=== PATIENT | female | born 1955 | race Caucasian/White ===

== ENCOUNTER → 2018-12-10 | Outpatient (CLI) | payer OTHER ==
--- NOTE | 2018-12-10 08:44 | PCVCIMAG ---
APPROVED REPORT Indications Bruit History of Smoking Right arm numbness Doppler Spectral Velocity Analysis PSV / EDVPSV / EDV ECA (R) 100 / 23 cm/sECA (L) 81 / 18 cm/s dICA (R) 90 / 32 cm/sdICA (L) 76 / 35 cm/s Ginny (R) 81 / 34 cm/smICA (L) 91 / 40 cm/s pICA (R) 57 / 19 cm/spICA (L) 49 / 17 cm/s Bulb (R) 55 / 18 cm/sBulb (L) 52 / 18 cm/s dCCA (R) 66 / 16 cm/sdCCA (L) 60 / 19 cm/s mCCA (R) 76 / 25 cm/smCCA (L) 81 / 23 cm/s Vert (R) 56 / 19 cm/sVert (L) 55 / 17 cm/s ICA/CCA 1.19ICA/CCA 1.13 Basic Measurements Blood Pressure: Pulses: Right Left RightLeft Brachial(Sitting) 144/22buNp116/90mmHgTemporal Real Time B-Mode Imaging Vert. (R)AntegradeVert. (L)Antegrade Findings The right carotid bulb has mild plaque. The right proximal internal carotid artery shows no significant stenosis. The right common carotid artery shows no significant stenosis. The right external carotid artery shows no significant stenosis. The left carotid bulb has moderate calcified plaque. The left proximal internal carotid artery shows <40% stenosis. The left common carotid artery shows no significant stenosis. The left external carotid artery shows no significant stenosis. Conclusion 1. Right internal carotid artery with mild plaquing, no significant stenosis. 2. Left internal carotid artery stenosis (<40%) 3. Antegrade vertebral flow
--- NOTE | 2018-12-10 12:34 | PCVCIMAG ---
APPROVED REPORT Study performed: 12/10/2018 08:11:32 EXAM: Comprehensive 2D, Doppler, and color-flow Echocardiogram Patient Location: Echo lab Room #: 2Status: routine BSA: 1.77 HR: 72 bpmBP: 146/90 mmHg Rhythm: NSR Other Information Study Quality: Adequate Risk Factors: Cardiac Risk Factors: Smoking, Hyperlipidemia Indications Dyspnea CAD elevated coronary calcium score 2D Dimensions IVSd: 9.80 (7-11mm)LVOT Diam: 19.72 (18-24mm) LVDd: 44.54 mm PWd: 9.86 (7-11mm)Ascending Ao: 32.25 (22-36mm) LVDs: 24.18 (25-40mm) Left Atrium: 31.06 (27-40mm) Aortic Root: 28.03 mm LV Single Plane 4CH: 63.95 % LV Single Plane 2CH: 59.29 % Biplane EF: 61.7 % Volumes Left Atrial Volume (Systole) Single Plane 4CH: 20.12 mLSingle Plane 2CH: 30.76 mL Biplane LA Volume: 27.00 mLLA ESV Index: 15.00 mL/m2 Aortic Valve AoV Peak Grady.: 1.47 m/s AO Peak Gr.: 8.62 mmHgLVOT Max P.37 mmHg LVOT Max V: 0.77 m/s SARAH Vmax: 1.60 cm2 Mitral Valve E/A Ratio: 1.1 MV Decel. Time: 201.51 ms MV E Max Grady.: 0.80 m/s MV A Grady.: 0.76 m/s IVRT: 88.24 ms TDI E/Lateral E': 8.89E/Medial E': 8.00 Medial E' Grady.: 0.10 m/s Lateral E' Grady.: 0.09 m/s Pulmonary Valve PV Peak Grady.: 0.84 m/sPV Peak Gr.: 2.79 mmHg Pulmonary Vein P Vein S: 0.50 m/sP Vein A: 0.34 m/s P Vein D: 0.32 m/sP Vein A Dur.: 107.3 msec P Vein S/D Ratio: 1.56 Tricuspid Valve TR Peak Grady.: 0.94 m/s TR Peak Gr.: 3.51 mmHg TV Vmax: 0.59 m/sPA Pressure: 10.00 mmHg Left Ventricle The left ventricle is normal size. There is normal LV segmental wall motion. There is normal left ventricular wall thickness. The left ventricular systolic function is normal. The left ventricular ejection fraction is within the normal range. LVEF is 60-65%. The left ventricular diastolic function is normal. Right Ventricle The right ventricle is normal size. The right ventricular systolic function is normal. Atria The left atrium size is normal. The right atrium size is normal. Aortic Valve The aortic valve is grossly normal in structure. No aortic regurgitation is present. There is no aortic valvular stenosis. Mitral Valve The mitral valve is normal in structure. There is no mitral valve regurgitation noted. No evidence of mitral valve stenosis. Tricuspid Valve The tricuspid valve is normal in structure. Trace tricuspid regurgitation. Pulmonic Valve The pulmonary valve is normal in structure. There is no pulmonic valvular regurgitation. Great Vessels The aortic root is normal in size. The ascending aorta is normal in size. Aortic arch is not well visualized. IVC is normal in size and collapses >50% with inspiration. Pericardium There is no pericardial effusion. There is no pleural effusion. <Conclusion> Technically difficult study The left ventricular systolic function is normal. There is normal LV segmental wall motion. The aortic valve is grossly normal in structure. No aortic regurgitation or stenosis The mitral valve is normal in structure. No mitral valve regurgitation Pulmonary artery pressure could not be reliably ascertained There is no pericardial effusion.
--- NOTE | 2018-12-10 20:58 | PCVCIMAG ---
APPROVED REPORT Imaging Protocol: Rest Tc-99m/Stress Tc-99m 1 day Study performed: 12/10/2018 08:50:39 Indication: Dyspnea, Elevated Calcium Score Patient Location: Out-Patient Stress Nurse: Shweta Cordova RN, Imani Leblanc RN [place] Tech:Syed Zayas [id number] Ht: 5 ft 6 in Wt: 150 lbs BSA: 1.77 m2 HR: 92 bpm BP: 160/74 mmHg BMI: 24.2 Rhythm: Sinus Rhythm Medical History Medical History: Age, Hyperlipidemia, CAD Medications: No cardiac medications Allergies: No known drug allergies Pretest Chest Pain Characteristics: No chest pain Exercise History: Physically active Resting Data Rest SPECT myocardial perfusion imaging was performed in supine position 45 minutes following the intravenous injection of 11.6 mCi of Tc-99m Sestamibi. Time of rest injection: 09 Date: 12/10/2018 Administration Route: IV Administration Site: Right AC Pharmacologic Stress Pharmacologic stress test was performed by injecting Regadenoson 0.4 mg IV push over 10-15 seconds immediately followed by the intravenous injection of 36 mCi of Tc-99m Sestamibi. Time of stress injection: 1030 Date: 12/10/2018 Administration Route: IV Administration Site: Right AC Gated Stress SPECT was performed 45 minutes after stress injection. The images were gated to evaluate regional wall motion and calculate left ventricular ejection fraction. Stress Test Details Stress Test: Exercise stress testing was performed using a Jorge protocol. HRMax Heart Rate (APMHR): 157 bpm Resting HR: 92 bpmTarget HR (85% APMHR): 133 bpm Max HR Achieved: 137 bpm % of APMHR: 87 Recovery HR: 100 bpm BP Resting BP: 160/74 mmHg Max BP: 190/90 mmHg Recovery BP: 157/68 mmHg ECG Resting ECG: Sinus Rhythm Stress ECG: Sinus Tachycardia Arrhythmia: PVC's Recovery ECG: Sinus Tachycardia Clinical Reason for Termination: Dyspnea, Fatigue Stress Symptoms: Dyspnea Exercise duration: 7 min 35 sec Exercise capacity: 10.10 METs Overall Exercise Capacity for Age: Average Symptoms resolved during recovery. Stress ECG Conclusion 1. subjectively negative for ischemia 2. Electrocardiographically negative for ischemia 3. Average functional capacity Study Data Post stress, the left ventricular ejection was 75%.. SSS: 0 SRS: 0 SDS: 0 TID = 0.87. Perfusion There is a large area of moderately reduced uptake in the entire segment of the inferoseptal wall which is seen on the stress images and improves on the resting images. This area thickens and moves normally and is most consistent with ischemia. Wall Motion Normal left ventricular wall motion. Nuclear Conclusion ECG Findings: negative for ischemia Clinical Findings: negative for ischemia Nuclear Findings: positive for ischemia Exercise Capacity: normal Left Ventricular Function: normal 1. Inteermediate risk study based on evidence of inducible ischemia involving the inferoseptal wall. Interpreted by: Dominick Mohan MD Electronically Approved: 12/10/2018 20:56:30 <Conclusion> 1. subjectively negative for ischemia 2. Electrocardiographically negative for ischemia 3. Average functional capacity
== END | disposition home or self-care (01) ==
LOC: PCVCIMAG 07:57
PROVIDERS: ATTEND Internal Medicine
DX: I65.23 Occlusion and stenosis of bilateral carotid arteries (principal); R09.89 Other specified symptoms and signs involving the circulatory and respiratory systems; R93.1 Abnormal findings on diagnostic imaging of heart and coronary circulation; R06.02 Shortness of breath; R20.0 Anesthesia of skin; E78.5 Hyperlipidemia, unspecified; Z72.0 Tobacco use
CPT/HCPCS: 78452; 93017; 93306; 93880; A9500